=== PATIENT | female | born 1955 | race American Indian/Alaskan Native ===

== ENCOUNTER 2018-01-20 10:23 | Inpatient (IN) | payer MEDICARE, OTHER ==
--- NOTE | 2018-01-20 11:03 | ED PDOC ---
Arrival/HPI - General Chief Complaint: Altered Mental Status Time Seen by Provider: 01/20/18 10:24 Historian: Patient, Family (Daughter in law) EM Caveat: Altered Mental Status - History of Present Illness Narrative History of Present Illness (Text): 01/20/18 10:31 A 62 year old female, whose past medical history includes Altered mental status , CHF, dementia, and TIAs, presents to the emergency department with daughter in law complaining of overdose from earlier this morning. Family reports patient was in normal state of health at 5:30 am today but when [id number] came back to check on patient at 10 am, patient was found to be tired and confused. Family noticed there appeared to be missing pills form the patient's Ambien 10 mg bottle, although there was no witnessed overdose or expression of suicidal ideation. ROS is limited due to patient's condition. 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 - Anesthesia Hx Anesthesia: Yes Hx Anesthesia Reactions: No Hx Malignant Hyperthermia: No - Suicidal Assessment Feels Threatened In Home Enviroment: No Family/Social History - Physician Review Nursing Documentation Reviewed: Yes Family/Social History: Unknown Family HX Smoking Status: Former Smoker Hx Alcohol Use: No Hx Substance Use: No Hx Substance Use Treatment: No Allergies/Home Meds Allergies/Adverse Reactions: Allergies No Known Allergies Allergy (Verified 05/03/13 07:54) Home Medications: Home Meds Medication Instructions Recorded Confirmed Alprazolam [Alprazolam Xr] 0.5 mg PO 01/20/18 Lisinopril [Zestril] 10 mg PO 01/20/18 Metoprolol Succinate [Kapspargo 25 mg PO 01/20/18 Sprinkle] Pregabalin [Lyrica] 75 mg PO TID 01/20/18 01/20/18 Zolpidem [Ambien] 10 mg PO HS PRN 01/20/18 01/20/18 Review of Systems - Review of Systems Systems not reviewed;Unavailable: Altered Mental Status Constitutional: absent: Fevers Respiratory: absent: SOB Gastrointestinal: absent: Vomiting Musculoskeletal: absent: Back Pain Neurological: absent: Headache Physical Exam - Physical Exam Narrative Physical Exam (Text): 01/20/18 11:03 Head: Atraumatic. Normocephalic. Eyes: No nystagumus. She is able to focus on interviewer and track voice. Visual acuity is grossly intact. Pupils are equal. ENT: Mucous membranes are moist and intact. Oropharynx is clear and symmetric. No facial bony tenderness. Neck: Supple. Full ROM. No JVD. Trachea midline. No meningeal signs. No midline pain or deformity. Cardiovascular: Regular rate. Regular rhythm. No murmurs, rubs, or gallops. Distal pulses are 2+ and symmetric. Pulmonary/Chest: No evidence of respiratory distress. Clear to auscultation bilaterally. No wheezing, rales or rhonchi. Abdominal: Soft and non-distended. Obese. There is no tenderness. No rebound , guarding, or rigidity. No organomegaly. Good bowel sounds. No pulsatile masses. Rectal: no gross bleeding, no melena Back: No CVA tenderness. No trauma or deformity. Extremities: No edema. No cyanosis. No clubbing. History of amputation of left upper extremity. Distal extremities with no acute edema or erythema. Skin: Skin is warm and dry. No petechiae. No purpura. No lacerations. Neurological: Patient will open eyes to tactile stimuli, then to verbal stimuli. She will sit up spontaneously and speak with no slurring. No facial droop. Will move all extremities at baseline strength. Psychiatric: Poor eye contact. She does not express suicidal or homicidal ideation although family states that she has multiple stressors at this time including family illnessess that "may be causing anxiety" as per daugther in law. She "is tallking about things and not making sense" as per family. Vital Signs Reviewed: Yes Vital Signs Temp Pulse Resp BP Pulse Ox 01/20/18 14:16 97.9 F 90 19 175/79 H 97 01/20/18 13:37 100 H 181/93 H 01/20/18 12:48 84 20 181/96 H 100 01/20/18 11:50 84 22 193/93 H 98 01/20/18 10:33 96.2 F L 89 26 H 168/89 H 98 Temperature: Afebrile Blood Pressure: Hypertensive Pulse: Regular Respiratory Rate: Tachypneic Appearance: Positive for: Non-Toxic Mental Status: Positive for: Confused Finger Stick Blood Glucose: 84 Medical Decision Making ED Course and Treatment: 01/20/18 11:26 Impression: 62 year old female presenting to the emergency department for altered mental status. Plan: supplement history with family neuro checks labs monitoring cardiac monitoring ct head Prior Visits: Notes and results from previous visits were reviewed. Progress Notes: Patient was last seen well by family "daughter in law" at 530 am today when patient had food brought to her and "she was acting normal." As per daughter in law, and son who later presented, she was her typical self past few days with no noticeable new symptoms, no new medications. She was found at 1000 am by daughter in law "not acting herself" described as "talking confused". No noticeable trauma noted. Family noted that an Ambien bottle that "was just filled one week ago an had a month supply of Ambien" was empty. THERE WAS NO WITNESSED INGESTION and family does not verbally communicate that she took any pills, although she appears altered on initial exam. No signs of acute trauma noted. Family states that "the only other medication she takes now is Coumadin". There were no Coumadin pills noted to be missing. She currently "ran out of her other meds" and DOES NOT TAKE ANY OTHER MEDICATION AT THIS TIME PER FAMILY. On initial exam, she is not in respiratory distress. Lungs clear. She is intermittently sleepy but easily arousable and at times will sit up and talk and answer questions although family states "she's not herself". No focal weakness is noted. No acute facial droop noted. No fever. EKG revelas NSR rate of 92 with anteroseptal infarct, age undetermined, similar to past available EKG. Patient presented 5 hours from last time known well. She is not tpa candidate due to this reported time frame. Initial impression is possible medication overdose, monitor for tia/cva, cardiovascular disease, sepsis, medication effect. With serial exams. No hypotension, no arrhythmias. No respiratory depressions. She is AFEBRILE. Initial lactate unremarable. Abdomen soft and nontender. UA noted but no fever or hx of dysuria or abdominal pain or flank pain. Will send urine culture and follow-up with hospitalization. CT head reveals encepholmalacia but no acute interval changes as per radiology. Limitations of imaging studies and labs reviewed with patient's family. With serial exams, she will ask for something to eat. No stridor or respiratory compromise noted. Poison control was notified for possible Ambien overdose. We have reviewed case and current exam with poison control. Urine triage reviewed. Patient given clonidine for hypertension. She has reported prior hx of this. PMD reportedly Dr. Cowan. I have discussed with son, niece, daughter in law with son's permission and updated them on labs, treatment plan, initial differential diagnosis and need for serial exams, cardiac monitoring and serial neuro exams. She remains sleepy but easily arousable in ED with no focal weakness noted. INR subtherapeutic. Will turnover to hospitalist for follow-up and review of anticoagulation indications. 01/20/18 17:04 - Lab Interpretations Lab Results: 01/20/18 11:00 01/20/18 11:40 Lab Results 01/20/18 11:40: Sodium 143, Chloride 111 H, Potassium 4.2, Carbon Dioxide 23, Anion Gap 14, BUN 19, Creatinine 1.2, Est GFR ( Amer) 55, Est GFR (Non- Af Amer) 46, Random Glucose 85, Calcium 9.5, Magnesium 2.2, Total Bilirubin 0.3 , AST 22, ALT 15, Alkaline Phosphatase 106, Lactate Dehydrogenase 451, Total Creatine Kinase 148, Troponin I < 0.01 D, Total Protein 8.7 H, Albumin 4.1, Globulin 4.6, Albumin/Globulin Ratio 0.9 L, Lipase 89 01/20/18 11:00: Alcohol, Quantitative < 10 01/20/18 11:00: Salicylates < 1 L, Acetaminophen < 10.0 L 01/20/18 11:00: Urine Opiates Screen Negative, Urine Methadone Screen Negative, Ur Barbiturates Screen Negative, Ur Phencyclidine Scrn Negative, Ur Amphetamines Screen Negative, U Benzodiazepines Scrn Negative, U Oth Cocaine Metabols Negative, U Cannabinoids Screen Negative 01/20/18 11:00: pO2 72 H, VBG pH 7.38, VBG pCO2 49.0, VBG HCO3 29.0 H, VBG Total CO2 30.5 H, VBG O2 Sat (Calc) 95.8 H, VBG Base Excess 3.0 H, VBG Potassium 6.1 H, Sodium 142.0, Chloride 116.0 H, Glucose 91, Lactate 1.1, FiO2 21.0, Venous Blood Potassium 6.1 H 01/20/18 11:00: pCO2 38, pO2 90.0, HCO3 24.6, ABG pH 7.42, ABG Total CO2 25.8, ABG O2 Saturation 97.8, ABG Base Excess 0.3, ABG Potassium 3.6, Sodium 144.0, Chloride 118.0 H, Glucose 92, Lactate 0.5 L, FiO2 31.0, Arterial Blood Potassium 3.6 01/20/18 11:00: Urine Color Yellow, Urine Appearance Clear, Urine pH 6.5, Ur Specific [place] 1.020, Urine Protein Trace H, Urine Glucose (UA) Negative, Urine Ketones Negative, Urine Blood Trace-intact H, Urine Nitrate Negative, Urine Bilirubin Negative, Urine Urobilinogen 0.2, Ur Leukocyte Esterase Negative , Urine RBC 1 - 3, Urine WBC 0 - 2, Ur Epithelial Cells 4 - 5, Urine Bacteria Many 01/20/18 11:00: PT 15.5 H, INR 1.34, APTT 31.8 01/20/18 11:00: WBC 5.8 D, RBC 4.79, Hgb 11.8 L, Hct 37.2, MCV 77.7 L, MCH 24.6 L, MCHC 31.7, RDW 16.7 H, Plt Count 274, MPV 10.6, Gran % 48.2 L, Lymph % ( Auto) 38.6 H, Parmer % (Auto) 10.2 H, Eos % (Auto) 2.3, Baso % (Auto) 0.7, Gran # 2.78, Lymph # (Auto) 2.2, Parmer # (Auto) 0.6, Eos # (Auto) 0.1, Baso # (Auto) 0.04 - RAD Interpretation Narrative RAD Interpretations (Text): 01/20/18 12:11 Procedure: Chest X-ray Impression: No active disease. Dictator: Dr. Fobben. Reinier HOBBS Procedure: CT Head without contrast Impression: The study was degraded by motion artifact There is extensive encephalomalacia in the right hemisphere and portions of the left occipital lobe. The findings are unchanged. No acute findings. Dictator: Dr. Rae. Reinier HOBBS Radiology Orders: 01/20/18 10:44 HEAD W/O CONTRAST [CT] Stat CHEST ONE VIEW [RAD] Stat Division Roadmaster: Radiologist - Medication Orders Current Medication Orders: Aspirin (Ecotrin) 81 mg PO 0800 AUDIE Lisinopril (Zestril) 10 mg PO DAILY AUDIE Metoprolol Tartrate (Lopressor) 25 mg PO BID AUDIE Discontinued Medications Clonidine HCl (Catapres) 0.1 mg PO ONCE STA Stop: 01/20/18 13:28 Last Admin: 01/20/18 13:37 Dose: 0.1 mg MAR Pulse and Blood Pressure Document 01/20/18 13:37 SRE (Rec: 01/20/18 13:38 SRE [id number]) Pulse Pulse Rate (60-90 beats/min) 100 Blood Pressure Blood Pressure (100/60-150/90 mm Hg) 181/93 - Scribe Statement The provider has reviewed the documentation as recorded by the Ziggy Jimenez All medical record entries made by the Shrutiibmonroe were at my direction and personally dictated by me. I have reviewed the chart and agree that the record accurately reflects my personal performance of the history, physical exam, medical decision making, and the department course for this patient. I have also personally directed, reviewed, and agree with the discharge instructions and disposition. Disposition/Present on Arrival - Present on Arrival Any Indicators Present on Arrival: Yes History of DVT/PE: Yes History of Uncontrolled Diabetes: No Urinary Catheter: No History of Decub. Ulcer: No History Surgical Site Infection Following: None - Disposition Have Diagnosis and Disposition been Completed?: Yes Diagnosis: Altered mental status, Subtherapeutic international normalized ratio (INR) Disposition: HOSPITALIZED Disposition Time: 12:15 Patient Plan: Admission, Telemetry Patient Problems: Current Active Problems Problem Status Onset Altered mental status Acute Condition: SERIOUS
[2018-01-20 11:19] LABS: ARTERIAL BLOOD GAS HCO3 24.6 mmol/L (21-28); ARTERIAL BLOOD GAS O2 SAT 97.8 % (95-98); ARTERIAL BLOOD GAS PCO2 38 mm/Hg (35-45); ARTERIAL BLOOD GAS PH 7.42 (7.35-7.45); ARTERIAL BLOOD GAS TCO2 25.8 mmol.L (22-28)
[2018-01-20 11:26] LABS: PH,URINE 6.5 (4.7-8.0); URINE BILIRUBIN NEGATIVE (NEGATIVE); URINE BLOOD TRACE-INTACT (NEGATIVE); URINE GLUCOSE (UA) NEGATIVE (NEGATIVE); URINE LEUKOCYTE ESTERASE NEGATIVE Leu/uL (NEGATIVE); URINE PROTEIN TRACE mg/dL (<30 mg/dL); URINE UROBILINOGEN 0.2 E.U./dL (<1 E.U./dL)
[2018-01-20 11:27] LABS: BASO # 0.04 K/mm3 (0.0-2.0); BASO % 0.7 % (0.0-3.0); EOS # 0.1 (0.0-0.7); EOS % 2.3 % (1.5-5.0); GRAN # 2.78 (1.4-6.5); GRAN % 48.2 % (50.0-68.0); HEMOGLOBIN 11.8 g/dL (12.0-16.0); LYMPH # 2.2 (1.2-3.4); LYMPH % 38.6 % (22.0-35.0); MEAN CELL VOLUME 77.7 fl (80.0-105.0); MEAN CORPUSCULAR HEMOGLOBIN 24.6 pg (25.0-35.0); MEAN CORPUSCULAR HGB CONC 31.7 g/dl (31.0-37.0); MEAN PLATELET VOLUME 10.6 fl (7.0-11.0); MONO # 0.6 (0.1-0.6); MONO % 10.2 % (1.0-6.0); RBC 4.79 10^6/uL (3.5-6.1); RED CELL DISTRIBUTION WIDTH 16.7 % (11.5-14.5); URINE APPEARANCE CLEAR (CLEAR); URINE COLOR YELLOW (YELLOW); WHITE BLOOD COUNT 5.8 10^3/ul (4.5-11.0)
[2018-01-20 11:31] LABS: VENOUS BLOOD GAS PO2 72 mm/Hg (30-55); VENOUS BLOOD PH 7.38 (7.32-7.43)
[2018-01-20 11:33] LABS: INR 1.34; PARTIAL THROMBOPLASTIN TIME 31.8 Seconds (25.1-36.5); PROTHROMBIN TIME 15.5 SECONDS (9.4-12.5)
[2018-01-20 11:35] LABS: ACETAMINOPHEN < 10.0 ug/ml (10.0-20.0); SALICYLATE < 1 mg/dL (2.0-20.0)
[2018-01-20 11:44] LABS: BARBITURATES, UR NEGATIVE (NEGATIVE); BENZODIAZEPINES, UR NEGATIVE (NEGATIVE); OPIATES, UR NEGATIVE (NEGATIVE); PHENCYCLIDINE, UR NEGATIVE (NEGATIVE)
[2018-01-20 11:54] LABS: URINE BACTERIA MANY (NEG); URINE WBC 0 - 2 /hpf (0-6)
[2018-01-20 12:00] LABS: ALB/GLOB RATIO 0.9 (1.1-1.8); ALBUMIN 4.1 g/dL (3.0-4.8); ALT/SGPT 15 U/L (7-56); AST/SGOT 22 U/L (14-36); BLOOD UREA NITROGEN 19 mg/dL (7-21); CALCIUM 9.5 mg/dL (8.4-10.5); GFR NON-AFRICAN AMERICAN 46; LIPASE 89 U/L (23-300)
--- NOTE | 2018-01-20 12:01 | CT ---
Date of service: 01/20/2018 PROCEDURE: CT HEAD WITHOUT CONTRAST. HISTORY: ams COMPARISON: 06/22/2015 TECHNIQUE: Axial computed tomography images were obtained through the head/brain without intravenous contrast. Radiation dose: Total exam DLP = 2042 mGy-cm. This CT exam was performed using one or more of the following dose reduction techniques: Automated exposure control, adjustment of the mA and/or kV according to patient size, and/or use of iterative reconstruction technique. The patient was combative and was moving throughout the exam. The exam was repeated FINDINGS: HEMORRHAGE: No intracranial hemorrhage. BRAIN: The study was degraded by motion artifact There is extensive encephalomalacia in the right hemisphere and portions of the left occipital lobe. The findings are unchanged. No acute findings VENTRICLES: Unremarkable. No hydrocephalus. CALVARIUM: Unremarkable. PARANASAL SINUSES: Unremarkable as visualized. No significant inflammatory changes. MASTOID AIR CELLS: Unremarkable as visualized. No inflammatory changes. OTHER FINDINGS: None. IMPRESSION: The study was degraded by motion artifact There is extensive encephalomalacia in the right hemisphere and portions of the left occipital lobe. The findings are unchanged. No acute findings
--- NOTE | 2018-01-20 12:09 | RAD ---
Date of service: 01/20/2018 PROCEDURE: CHEST RADIOGRAPH, 1 VIEW HISTORY: sob COMPARISON: 06/20/2015 FINDINGS: LUNGS: Clear. PLEURA: No pneumothorax or pleural fluid seen. CARDIOVASCULAR: Normal. OSSEOUS STRUCTURES: No significant abnormalities. VISUALIZED UPPER ABDOMEN: Normal. OTHER FINDINGS: None. IMPRESSION: No active disease.
[2018-01-20 12:12] LABS: TROPONIN I < 0.01 ng/mL
--- NOTE | 2018-01-20 16:33 | CP.PCM.HP ---
<Rodrigo Gamez - Last Filed: 01/20/18 17:30> History of Present Illness - History of Present Illness History of Present Illness: Rodrigo Gamez, PGY1 H&P for Dr. Hughes cc: confusion/AMS Patient is a 62 y/o F with PMHx of AMS, CHF, Dementia, TIA, HTN, Prior History of DVT who presented to the ED on 01/20 for confusion and altered mental status. In the ED, daughter was present at bedside. As per daughter, patient was found at 10am to be tired and confused with missing pills found from a bottle of Ambien. Patient was not witnessed to have overdosed and she does not have any suicidal ideations. In the ED, patient's vital signs were Temp 96.2, HR 80, BP 168/89, RR 26, SaO2 98% room air. Patient had CXR which indicated no active disease. Patient's Head CT did not indicate any acute changes but it showed extensive encephalomalacia at the R-hemisphere and portions of the left occipital lobe (similar to previous scans). Initial troponin negative, urine drug screen negative, urine analysis negative. EKG showed NSR at 92 bpm. ABG was normal. Medical team was consulted for evaluation. Patient was seen in the ED. Patient was confused. She was AAOx1. Baseline mental status was unknown since patient's daughter or family member was not present at bedside. Patient said that she was experiencing dizziness x3 weeks in duration. However, she did say that she took several pills earlier in the morning but did not know which ones. At the time, she denied chest pain, shortness of breath, and abdominal pain. As from prior charting, patient was admitted before on 06/2015 for sepsis and influenza. During time of interview, a full 12 point ROS was not obtained since patient appeared to be confused (unknown baseline mental status). PMD: Dr. Cowan Reviewed from Prior charting: PMHx: AMS, CHF, Dementia, TIA, HTN, Prior History of DVT PSHx: cholecystectomy, left arm above the elbow amputation Meds: zolpidem 10 mg HS, warfarin 5 mg 1 daily, ASA 81 mg daily, Alprazolam .5 mg daily, Lyrica 75 mg TID, Metoprolol 25 mg BID, Lisinopril 10 mg daily. Allergies: NKDA FamHx: not obtained since patient is confused. SocialHx: not obtained since patient is confused. 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 - ANESTHESIA Hx Anesthesia: Yes Hx Anesthesia Reactions: No Hx Malignant Hyperthermia: No Meds Allergies/Adverse Reactions: Allergies Allergy/AdvReac Type Severity Reaction Status Date / Time No Known Allergies Allergy Verified 01/20/18 18:57 Physical Exam - Constitutional Appears: Confused - Head Exam Head Exam: ATRAUMATIC, NORMAL INSPECTION, NORMOCEPHALIC - Eye Exam Eye Exam: PERRL - ENT Exam ENT Exam: Mucous Membranes Moist, Normal Exam - Neck Exam Neck exam: Positive for: Normal Inspection - Respiratory Exam Respiratory Exam: Clear to Auscultation Bilateral, NORMAL BREATHING PATTERN. absent: Rales, Rhonchi, Wheezes - Cardiovascular Exam Cardiovascular Exam: REGULAR RHYTHM, +S1, +S2. absent: Systolic Murmur - GI/Abdominal Exam GI & Abdominal Exam: Normal Bowel Sounds, Soft. absent: Rigid, Tenderness - Extremities Exam Extremities exam: Positive for: pedal pulses present. Negative for: tenderness Additional comments: Left above the elbow amputation. Skin discoloration also noted on the lower extremities. - Neurological Exam Neurological exam: Altered (AAOx1 (person only)) - Skin Skin Exam: Dry, Intact, Normal Color, Warm Results - Vital Signs Recent Vital Signs: Last Vital Signs Temp 97.9 F 01/20/18 15:02 Pulse 90 01/20/18 15:02 Resp 19 01/20/18 15:02 BP 175/79 H 01/20/18 15:02 Pulse Ox 97 01/20/18 15:02 - Labs Result Diagrams: 01/20/18 11:00 01/20/18 11:40 Assessment & Plan - Assessment and Plan (Free Text) Assessment: Patient is a 62 y/o F with PMHx of AMS, CHF, Dementia, TIA, HTN, Prior History of DVT who presented to the ED on 01/20 for confusion and altered mental status. In the ED, history was obtained from the daughter and patient was found to be confused in the morning with missing pills found from a bottle of Ambien. Patient is being admitted for Encephalopathy 2/2 Polypharmacy. Plan: Encephalopathy 2/2 Polypharmacy and Hx of Dementia - Head CT: no acute changes. Extensive encephalomalacia at R-hemisphere and L- occipital love. - Neuro consulted, f/u recs. - Call pharmacy to confirm patient's medications - T4 - TSH - Urine drug screen negative - f/u blood cx, urine cx - UA is negative - Vital signs stable - Currently AAOx1 - Unknown baseline mental status; talk to patient's daughter - As per daughter (ED note), patient found confused at 10 am with missing pills from a bottle of Ambien - Fall precaution - CXR: no active disease HTN - BP was 168/89 - Hydralazine 10 mg q6 prn - Will hold PO BP meds for now ([id number] BID, Lisinopril 10 mg daily, ASA 81 mg daily) - please monitor BP - EKG: NSR. 92 bpm. Left [place] Deviation. - Echo (06/2015): 29% EF. Severe septal and apical hypokinesis. Lower extremity discoloration with Hx of DVT - venous doppler to r/o DVT - started on lovenox for bridge therapy (1mg/kg q12) to coumadin - f/u INR in morning Dispo: Patient will be monitored on telemetry. Case was discussed and reviewed with Attending Physician, Dr. Hughes. <Mikaela Hughes R - Last Filed: 01/22/18 07:14> Results - Vital Signs Recent Vital Signs: Last Vital Signs Temp 98.4 F 01/22/18 06:00 Pulse 73 01/22/18 06:00 Resp 20 01/22/18 06:00 BP 120/61 01/22/18 06:00 Pulse Ox 95 01/22/18 06:00 - Labs Result Diagrams: 01/21/18 06:00 01/21/18 06:00 Labs: Laboratory Results - last 24 hr 01/21/18 06:00 Sodium 143 Potassium 4.1 Chloride 109 H Carbon Dioxide 27 Anion Gap 11 BUN 14 Creatinine 1.1 Est GFR ( Amer) > 60 Est GFR (Non-Af Amer) 51 Random Glucose 82 Calcium 9.0 Phosphorus 3.5 Magnesium 2.0 Total Bilirubin 0.5 AST 22 ALT 18 Alkaline Phosphatase 94 Total Protein 7.8 Albumin 3.8 Globulin 3.9 Albumin/Globulin Ratio 1.0 L Attending/Attestation - Attestation I have personally seen and examined this patient.: Yes I have fully participated in the care of the patient.: Yes I have reviewed all pertinent clinical information: Yes Notes (Text): Patient seen and examined by me at 3:30 PM with resident 01/20/18. Case including HPI, physical exam, and assessment and plan discussed with resident. Agree with above with following additions/corrections. 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 History taken from ED notes and patient's chart as patient is altered no family at bedside. Per ED notes patient was found by daughter to be confused and tired. There were missing pills from patient's bottle of Ambien at home. It is unclear how many pills patient took. Patient admitted to dizziness earlier however when asked by me, patient denied any dizziness or lightheadedness. She states she woke up today and went to the bathroom and does not remember what happened afterwards. She does complain of some pain in her knees and states that she has arthritis in her knees. She states that she is currently in her bed at home. She is denying any pain. Unable to obtain review of systems secondary to patient being altered and confused. Physical exam: General: Awake and sleepy. HEENT: Normocephalic atraumatic. Pupils equal reactive. No scleral icterus. Oropharynx is pink and moist. Neck is supple. Hearing grossly intact. Ears and nose externally unremarkable Cardiovascular: Normal rhythm. Normal S1, S2. No murmurs, rubs, or gallops appreciated Pulmonary: Normal respiratory effort. No rhonchi, rales or wheezing appreciated. Auscultated anteriorly as patient not following commands and not sitting up or taking in deep breaths. Gastrointestinal: Soft, nondistended. Nontender. Positive bowel sounds all 4 quadrants, no guarding. Obese abdomen. Unable to examine for any organomegaly secondary to body habitus. Musculoskeletal: Moves all extremities. No calf tenderness. Trace lower extremity edema bilaterally. Central nervous system: Awake and sleepy. Patient not following commands. Confused. 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 1. Encephalopathy in a patient with history of dementia. Likely secondary to polypharmacy. Neuro consulted, follow-up recommendations. Urine drug screen negative. Poison control called by the emergency room. Possibly taken extra Ambien pills. Follow-up urine and blood culture. Follow-up thyroid panel. CT head per radiology shows study degraded by motion artifact, extensive encephalomalacia in the right hemisphere and portions of left occipital lobe, findings unchanged, no acute findings. Monitor on telemetry. Continue with Avasys. Patient made nothing by mouth. 2. Hypertension. Patient's home medications of metoprolol and lisinopril held for now as patient is nothing by mouth. Placed on hydralazine when necessary. 3. Bilateral lower extremity edema. Follow-up bilateral lower extremity venous Dopplers to rule out DVT. 4. History of DVT. INR subtherapeutic. Patient is nothing by mouth. We'll place on therapeutic Lovenox and bridge to Coumadin. 5. DVT prophylaxis. Lovenox Case was discussed in detail with the patient's nurse at bedside regarding current diagnosis and treatment plan.
--- NOTE | 2018-01-20 17:08 | CP.PCM.CON ---
<Olivia Berger - Last Filed: 01/20/18 17:29> History of Present Illness - History of Present Illness History of Present Illness: ICU consult note for Dr. Ilsa Reza for:possible Ambien overdose Mrs. Linton is a 62 yr old F who presented to [facility] via ambulance requested by family when her daughter discovered that she may have taken a large number of ambien (10-20). upon interview Mrs. linton is alert awake and oriented to person and time she is able to give her birthdate and name her daughters. She believes she is in in [place] but has encephalomalacia and associated dementia therefore this may be her baseline. She states that she has not taken Ambien since last night before going to sleep and has not taken any today. She attributes her mild sleepiness to poor sleep quality last night. She otherwise denies difficulty breathing, abdominal pain, chest pain, or headache. PMH: encephalomalacia and associated dementia at baseline, CHF, HTN, R CVA 2010 PSH: Cholecystectomy Social: former smoker Review of Systems - EENT Eyes: absent: Change in Vision - Cardiovascular Cardiovascular: absent: Chest Pain - Respiratory Respiratory: absent: Dyspnea - Gastrointestinal Gastrointestinal: absent: Abdominal Pain Past Patient History - Infectious Disease Hx of Infectious Diseases: None - Past Social History Smoking Status: Former Smoker - CARDIAC Hx Congestive Heart Failure: Yes Hx Hypertension: Yes - PULMONARY Hx Respiratory Disorders: No - NEUROLOGICAL HX Cerebrovascular Accident: Yes (R CVA 2010) - HEENT Hx HEENT Problems: No Other/Comment: 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 - ANESTHESIA Hx Anesthesia: Yes Hx Anesthesia Reactions: No Hx Malignant Hyperthermia: No Meds Allergies/Adverse Reactions: Allergies Allergy/AdvReac Type Severity Reaction Status Date / Time No Known Allergies Allergy Verified 05/03/13 07:54 - Medications Medications: Current Medications Aspirin (Ecotrin) 81 mg PO 0800 [facility] Lisinopril (Zestril) 10 mg PO DAILY [facility] Metoprolol Tartrate (Lopressor) 25 mg PO BID [facility] Physical Exam - Constitutional Appears: Well, Non-toxic, No Acute Distress - Head Exam Head Exam: ATRAUMATIC, NORMOCEPHALIC - Eye Exam Eye Exam: EOMI, Normal appearance - ENT Exam ENT Exam: Mucous Membranes Moist - Respiratory Exam Respiratory Exam: Clear to Auscultation Bilateral, NORMAL BREATHING PATTERN. absent: Rales, Rhonchi, Wheezes - Cardiovascular Exam Cardiovascular Exam: REGULAR RHYTHM, +S1, +S2 - GI/Abdominal Exam GI & Abdominal Exam: Normal Bowel Sounds, Soft. absent: Distended, Firm, Guarding, Rigid, Tenderness - Extremities Exam Extremities exam: Positive for: normal inspection - Neurological Exam Neurological exam: Alert Additional comments: oriented x2 knows person and date but believes she is in [place] - Psychiatric Exam Psychiatric exam: Normal Affect, Normal Mood - Skin Skin Exam: Dry, Intact, Normal Color, Warm Results - Vital Signs Recent Vital Signs: Last Vital Signs Temp 97.9 F 01/20/18 15:02 Pulse 90 01/20/18 15:02 Resp 19 01/20/18 15:02 BP 175/79 H 01/20/18 15:02 Pulse Ox 97 01/20/18 15:02 - Labs Result Diagrams: 01/20/18 11:00 01/20/18 11:40 Assessment & Plan - Assessment and Plan (Free Text) Assessment: 62 yr old female with PMH baseline dementia, CHF, HTN with possible unknown quantity of Ambien ingested. Patient is awake alert oriented to person and date , resting comfortably in bed with no tachypnea, hypotension or respiratory distress ABG, LFT, BUN/CR, CMP and Toxin screen normal. Head Ct reveals stable encephalomalacia consistent with her baseline dementia. CXR shows no active disease. EKG is unremarkable. Recommend patient be monitored for signs of excessive Ambien ingestion such as EKG changes LFTs and MATT on a telemetry floor. Plan: Neuro: - Alert Oriented x2 following commands - reponds to simpla and complex questions approriately - believes she is in [place], this may be consistent with her baseline dementia diagnosis - CT; Stable encephalomalacia present - monitor for mental status changes Cardio: - Normotensive, nontacycardic - normal EKG - monitor for EKG changes on tele Pulm: - breathing comfortably no respiratory distress - saturating well on O2 NC - CXR negative - monitor for respiratory changes GI: - denies abdominal pain, no tenderness on EXAM - LFTs normal, no signs of liver injury - no jaundice on exam - monitor for LFT changes - recommend GI prophylaxis Renal: - appropriate UOP - BUN/Cr 19/1.2, this is her baseline - monitor for signs of MATT Heme: - no signs of hemorrhage or volume depletion - hgb/hct 11.8/37 - PLT 274 - Monitor for changes DVT: LVX/ASA - Date & Time Date: 01/20/18 Time: 17:28 <Justin Rosenbaum - Last Filed: 01/20/18 18:07> Meds - Medications Medications: Current Medications Aspirin (Ecotrin) 81 mg PO 0800 [facility] Enoxaparin Sodium (Lovenox) 150 mg SC Q12H [facility] PRN Reason: Protocol Hydralazine HCl (Apresoline) 10 mg IVP Q6 PRN PRN Reason: Anxiety Lisinopril (Zestril) 10 mg PO DAILY [facility] Metoprolol Tartrate (Lopressor) 25 mg PO BID [facility] Warfarin Sodium (Coumadin) 5 mg PO 1800 [facility] PRN Reason: Protocol Results - Vital Signs Recent Vital Signs: Last Vital Signs Temp 97.9 F 01/20/18 15:02 Pulse 90 01/20/18 15:02 Resp 19 01/20/18 15:02 BP 175/79 H 01/20/18 15:02 Pulse Ox 97 01/20/18 15:02 - Labs Result Diagrams: 01/20/18 11:00 01/20/18 11:40 Assessment & Plan - Assessment and Plan (Free Text) Plan: Patient seen and examined with resident, agree with note with following additions/exceptions: Patient is 62y female with PMHx of dementia, CHF, HTN, encephalomalecia, presented today with AMS as reported by the family, after possibly ingesting unknown amount of ambien. On my evaluation, patient is awake, alert, in NAD, providing full history, reports taking "3 pills of Ambien". Denies fever, chills , cough, chest pain, sob, palpitations, RAMIREZ, dizziness. Labs, imaging, chart reviewed. ABG with no evidence of CO2 narcosis/resp acidosis. Patient afebrile, HD stable, comfortable in NAD, on 2LNC, sat 94% LFTs, Cr wnl. EKG noted. Recommend: monitor resp status, currently stable, monitor LFTs, Cr, avoid sedatives. IVF hydration, GI ppx, DVT ppx, monitor on tele, stable.
[2018-01-20 17:25] LABS: FREE T4 1.14 ng/dL (0.78-2.19)
--- NOTE | 2018-01-20 17:33 | CARD ---
APPROVED REPORT Date of service: 01/20/2018 EKG Measurement Heart [id number] <Conclusion> Normal sinus rhythm Left axis deviation Voltage criteria for left ventricular hypertrophy Anteroseptal infarct, age undetermined Abnormal ECG
[2018-01-20] MEDS: Enoxaparin 150 mg Syringe SC SCH (19:00)
[2018-01-20 23:02] VITALS: BMI 52.0
[2018-01-20] MEDS ORDERED: Pneumococcal 23-Valent Vaccine IM ONE (23:02)
[2018-01-21 06:45] LABS: HEMOGLOBIN 11.5 g/dL (12.0-16.0); MEAN CELL VOLUME 77.9 fl (80.0-105.0); MEAN CORPUSCULAR HEMOGLOBIN 24.2 pg (25.0-35.0); MEAN PLATELET VOLUME 10.5 fl (7.0-11.0); RBC 4.76 10^6/uL (3.5-6.1); RED CELL DISTRIBUTION WIDTH 16.8 % (11.5-14.5); WHITE BLOOD COUNT 5.5 10^3/ul (4.5-11.0)
[2018-01-21 06:49] LABS: INR 1.35; PROTHROMBIN TIME 15.6 SECONDS (9.4-12.5)
[2018-01-21] MEDS: Enoxaparin 150 mg Syringe SC SCH ×2 (06:54→18:13)
[2018-01-21 07:51] LABS: ALBUMIN 3.8 g/dL (3.0-4.8); ALT/SGPT 18 U/L (7-56); AST/SGOT 22 U/L (14-36); BLOOD UREA NITROGEN 14 mg/dL (7-21); GFR NON-AFRICAN AMERICAN 51
[2018-01-21] MEDS ORDERED: Metoprolol Succinate 25 mg XL Tab PO SCH (08:00)
--- NOTE | 2018-01-21 13:49 | CP.PCM.PN ---
<Dain Law - Last Filed: 01/21/18 13:57> Subjective - Date & Time of Evaluation Date of Evaluation: 01/21/18 Time of Evaluation: 10:25 - Subjective Subjective: Dain Law DO, PGY-2: Progress Note for Dr. Mikaela Hughes Patient seen and examined at bedside. She is mentally lucid, oriented to person place or time, answering all questions appropriately. She is pending evaluation from neurology. Poison control stated Ambien Overdose is not a condition of lethality. Patient is doing well and only request for Cyclobenzaprine for muscle spasms. Objective - Vital Signs/Intake and Output Vital Signs (last 24 hours): Temp Pulse Resp BP Pulse Ox 99.1 F 61 19 200/100 H 97 01/21/18 12:00 01/21/18 12:00 01/21/18 12:00 01/21/18 10:56 01/20/18 15:02 Intake and Output: 01/21/18 01/21/18 06:59 18:59 Output Total 600 Balance -600 - Medications Medications: Current Medications Acetaminophen (Tylenol 325mg Tab) 650 mg PO Q6H PRN PRN Reason: Pain, moderate (4-7) Last Admin: 01/21/18 11:00 Dose: 650 mg Aspirin (Ecotrin) 81 mg PO 0800 [facility] Last Admin: 01/21/18 10:55 Dose: 81 mg Enoxaparin Sodium (Lovenox) 150 mg SC Q12H [facility] PRN Reason: Protocol Last Admin: 01/21/18 06:54 Dose: 150 mg Lisinopril (Zestril) 10 mg PO DAILY [facility] Last Admin: 01/21/18 11:00 Dose: 10 mg Metoprolol Tartrate (Lopressor) 25 mg PO BID [facility] Last Admin: 01/21/18 10:56 Dose: 25 mg Warfarin Sodium (Coumadin) 5 mg PO 1800 [facility] PRN Reason: Protocol - Labs Labs: 01/21/18 06:00 01/21/18 06:00 PT 15.6 SECONDS (9.4-12.5) H 01/21/18 06:00 INR 1.35 01/21/18 06:00 APTT 31.8 Seconds (25.1-36.5) 01/20/18 11:00 - Constitutional Appears: Well, Non-toxic - Head Exam Head Exam: ATRAUMATIC, NORMOCEPHALIC - Eye Exam Eye Exam: EOMI, Normal appearance - ENT Exam ENT Exam: Mucous Membranes Moist, Normal Oropharynx - Neck Exam Neck Exam: Normal Inspection - Respiratory Exam Respiratory Exam: Clear to Ausculation Bilateral, NORMAL BREATHING PATTERN. absent: Accessory Muscle Use - Cardiovascular Exam Cardiovascular Exam: RRR, +S1, +S2 - GI/Abdominal Exam GI & Abdominal Exam: Soft, Normal Bowel Sounds - Extremities Exam Extremities Exam: Normal Inspection Additional comments: left arm is amputated - Neurological Exam Neurological Exam: Alert, Awake, CN II-XII Intact, Oriented x3 Neuro motor strength exam: Left Upper Extremity: 5, Right Upper Extremity: 5, Left Lower Extremity: 5, Right Lower Extremity: 5 - Psychiatric Exam Psychiatric exam: Normal Affect, Normal Mood - Skin Skin Exam: Dry, Intact, Normal Color, Warm Assessment and Plan - Assessment and Plan (Free Text) Assessment: Patient is a 62 y/o F with PMHx of AMS, CHF, Dementia, TIA, HTN, Prior History of DVT who presented to the ED on 01/20 for confusion and altered mental status. In the ED, history was obtained from the daughter and patient was found to be confused in the morning with missing pills found from a bottle of Ambien. Patient is being admitted lethargy and is pending PT and neurology evaluation. Plan: Ambien lethargy has completely resolved - Head CT: no acute changes. Extensive encephalomalacia at R-hemisphere and L- occipital love. - Neuro consulted, f/u recs. - Call pharmacy to confirm patient's medications - T4 normal - TSH normal - Urine drug screen negative - f/u blood cx, urine cx negative - UA is negative - Vital signs stable - Currently AAOx 3 - Unknown baseline mental status; talk to patient's daughter - As per daughter (ED note), patient found confused at 10 am with missing pills from a bottle of Ambien - Fall precaution - CXR: no active disease HTN - BP was 168/89 - Hydralazine 10 mg q6 prn - Will continue PO BP meds ([id number] BID, Lisinopril 10 mg daily, ASA 81 mg daily) - EKG: NSR. 92 bpm. Left [place] Deviation. - Echo (06/2015): 29% EF. Severe septal and apical hypokinesis. Lower extremity discoloration with Hx of DVT - venous doppler negative - started on lovenox for bridge therapy (1mg/kg q12) to coumadin - will bridge to coumadin Dispo: Patient will be monitored on telemetry. Case was discussed and reviewed with Attending Physician, Dr. Mikaela Hughes. <Mikaela Hughes R - Last Filed: 01/22/18 07:33> Objective - Vital Signs/Intake and Output Vital Signs (last 24 hours): Temp Pulse Resp BP Pulse Ox 98.4 F 73 20 120/61 95 01/22/18 06:00 01/22/18 06:00 01/22/18 06:00 01/22/18 06:00 01/22/18 06:00 Intake and Output: 01/22/18 01/22/18 06:59 18:59 Intake Total 840 Output Total 1400 Balance -560 - Medications Medications: Current Medications Acetaminophen (Tylenol 325mg Tab) 650 mg PO Q6H PRN PRN Reason: Pain, moderate (4-7) Last Admin: 01/22/18 00:34 Dose: 650 mg Aspirin (Ecotrin) 81 mg PO 0800 [facility] Last Admin: 01/21/18 10:55 Dose: 81 mg Cyclobenzaprine HCl (Flexeril) 5 mg PO TID PRN PRN Reason: Muscle spasm Last Admin: 01/22/18 02:58 Dose: 5 mg Enoxaparin Sodium (Lovenox) 150 mg SC Q12H [facility] PRN Reason: Protocol Last Admin: 01/22/18 05:47 Dose: 150 mg Lisinopril (Zestril) 10 mg PO DAILY [facility] Last Admin: 01/21/18 11:00 Dose: 10 mg Metoprolol Tartrate (Lopressor) 25 mg PO BID [facility] Last Admin: 01/21/18 18:12 Dose: 25 mg Warfarin Sodium (Coumadin) 5 mg PO 1800 [facility] PRN Reason: Protocol Last Admin: 01/21/18 18:12 Dose: 5 mg - Labs Labs: 01/21/18 06:00 01/21/18 06:00 PT 15.6 SECONDS (9.4-12.5) H 01/21/18 06:00 INR 1.35 01/21/18 06:00 APTT 31.8 Seconds (25.1-36.5) 01/20/18 11:00 Attending/Attestation - Attestation I have personally seen and examined this patient.: Yes I have fully participated in the care of the patient.: Yes I have reviewed all pertinent clinical information, including history, physical exam and plan: Yes Notes (Text): ]Patient seen and examined by me at 8:55AM with resident 01/21/18. Case including HPI, physical exam, and assessment and plan discussed with resident. Agree with above with following additions/corrections. 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 Patient states that she is feeling much better today. Patient is oriented today. Patient resolved. Patient states that he has a pill bottle from which she takes all her medications daily. States that someone puts all her medications in the pill bottle daily. She did not realize that the pill bottle she took medications from was just Ambien. She is not feeling lethargic today. She complains of pain in her knee from arthritis. She states that her left upper extremity was amputated secondary to a DVT. She denies any headaches or dizziness. No fevers or chills. No chest pain or shortness of breath. No dysuria. No nausea, vomiting, or abdominal pain. Physical exam: General: Awake and alert. No acute distress. HEENT: Normocephalic atraumatic. Pupils equal reactive. No scleral icterus. Oropharynx is pink and moist. Neck is supple. Cardiovascular: Normal rhythm. Normal S1, S2. No murmurs, rubs, or gallops appreciated Pulmonary: Normal respiratory effort. No rhonchi, rales or wheezing appreciated. Gastrointestinal: Soft, nondistended. Nontender. Positive bowel sounds all 4 quadrants, no guarding. Obese abdomen. Unable to examine for any organomegaly secondary to body habitus. Musculoskeletal: Moves all extremities. No calf tenderness. Trace lower extremity edema bilaterally. Central nervous system: AAO 3. CN2-12 grossly intact. 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 1. Encephalopathy in a patient with history of dementia. Likely secondary to polypharmacy. Encephalopathy resolved. Neuro following, recommendations appreciated. Urine drug screen negative. Poison control called by the emergency room. Possibly taken extra Ambien pills. Urine and blood cultures with no growth. TSH within normal limits. CT head per radiology shows study degraded by motion artifact, extensive encephalomalacia in the right hemisphere and portions of left occipital lobe, findings unchanged, no acute findings Continue with Avasys. 2. Hypertension. Restarted on home lisinopril and metoprolol. 3. Bilateral lower extremity edema. Lower extremity venous Dopplers negative for DVT. 4. History of DVT. INR subtherapeutic. Continue therapeutic Lovenox. Patient to get Coumadin tonight. Follow up repeat INR in the morning. 5. DVT prophylaxis. Lovenox Case was discussed in detail with the patient regarding current diagnosis and treatment plan.
--- NOTE | 2018-01-21 16:33 | CP.PCM.CON ---
History of Present Illness - History of Present Illness History of Present Illness: Neurology Consultation Note: Mrs. Basurto is a 62-year-old woman who was brought in to the ED for concern of taking extra doses of ambien. She was initially slightly somnolent and confused , but is not back to her baseline. Neurology was consulted to assist with the management and care. 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, deaf in right ear - RENAL Hx Chronic Kidney Disease: No - ENDOCRINE/METABOLIC Hx Endocrine Disorders: No - HEMATOLOGICAL/ONCOLOGICAL Hx Blood Disorders: No - INTEGUMENTARY Hx Dermatological Problems: Yes Other/Comment: LEFT ABOVE ELBOW AMPUTION - MUSCULOSKELETAL/RHEUMATOLOGICAL Hx Musculoskeletal Disorders: Yes (ABOVE LEFT ELBOW AMPUTATION) Hx Falls: Yes Hx Unsteady Gait: Yes - GASTROINTESTINAL Hx Gastrointestinal Disorders: Yes Hx Gall Bladder Disease: Yes (CHOLEYCTECTOMY) - GENITOURINARY/GYNECOLOGICAL Hx Genitourinary Disorders: No - PSYCHIATRIC Hx Psychophysiologic Disorder: No Hx Depression: No Hx Emotional Abuse: No Hx Physical Abuse: No Hx Substance Use: No - SURGICAL HISTORY Hx Surgeries: Yes Hx Cholecystectomy: Yes Other/Comment: Left arm above elbow ampute. - ANESTHESIA Hx Anesthesia: Yes Hx Anesthesia Reactions: No Hx Malignant Hyperthermia: No Meds Allergies/Adverse Reactions: Allergies Allergy/AdvReac Type Severity Reaction Status Date / Time No Known Allergies Allergy Verified 01/20/18 18:57 - Medications Medications: Current Medications Acetaminophen (Tylenol 325mg Tab) 650 mg PO Q6H PRN PRN Reason: Pain, moderate (4-7) Last Admin: 01/21/18 11:00 Dose: 650 mg Aspirin (Ecotrin) 81 mg PO 0800 [facility] Last Admin: 01/21/18 10:55 Dose: 81 mg Cyclobenzaprine HCl (Flexeril) 5 mg PO TID PRN PRN Reason: Muscle spasm Enoxaparin Sodium (Lovenox) 150 mg SC Q12H [facility] PRN Reason: Protocol Last Admin: 01/21/18 06:54 Dose: 150 mg Lisinopril (Zestril) 10 mg PO DAILY [facility] Last Admin: 01/21/18 11:00 Dose: 10 mg Metoprolol Tartrate (Lopressor) 25 mg PO BID [facility] Last Admin: 01/21/18 10:56 Dose: 25 mg Warfarin Sodium (Coumadin) 5 mg PO 1800 [facility] PRN Reason: Protocol Physical Exam - Neurological Exam Neurological exam: Alert, CN II-XII Intact, Normal Gait, Oriented x3, Reflexes Normal Results - Vital Signs Recent Vital Signs: Last Vital Signs Temp 99.1 F 01/21/18 12:00 Pulse 61 01/21/18 12:00 Resp 19 01/21/18 12:00 BP 200/100 H 01/21/18 10:56 Pulse Ox 97 01/20/18 15:02 - Labs Result Diagrams: 01/21/18 06:00 01/21/18 06:00 Labs: Laboratory Results - last 24 hr 01/21/18 01/21/18 01/21/18 06:00 06:00 06:00 WBC 5.5 RBC 4.76 Hgb 11.5 L Hct 37.1 MCV 77.9 L MCH 24.2 L MCHC 31.0 RDW 16.8 H Plt Count 278 MPV 10.5 PT 15.6 H INR 1.35 Sodium 143 Potassium 4.1 Chloride 109 H Carbon Dioxide 27 Anion Gap 11 BUN 14 Creatinine 1.1 Est GFR ( Amer) > 60 Est GFR (Non-Af Amer) 51 Random Glucose 82 Calcium 9.0 Phosphorus 3.5 Magnesium 2.0 Total Bilirubin 0.5 AST 22 ALT 18 Alkaline Phosphatase 94 Total Protein 7.8 Albumin 3.8 Globulin 3.9 Albumin/Globulin Ratio 1.0 L Assessment & Plan (1) Altered mental status Assessment and Plan: Likely due to medication effect. No other recommendations at this time. Thank you. Status: Resolved
[2018-01-22] MEDS: Enoxaparin 150 mg Syringe SC SCH ×2 (05:47→17:46)
[2018-01-22 07:33] LABS: HEMOGLOBIN 11.4 g/dL (12.0-16.0); MEAN CORPUSCULAR HEMOGLOBIN 24.2 pg (25.0-35.0); MEAN PLATELET VOLUME 10.9 fl (7.0-11.0); RBC 4.72 10^6/uL (3.5-6.1); WHITE BLOOD COUNT 5.8 10^3/ul (4.5-11.0)
[2018-01-22 07:50] LABS: ALB/GLOB RATIO 0.9 (1.1-1.8); ALBUMIN 3.6 g/dL (3.0-4.8); CALCIUM 8.9 mg/dL (8.4-10.5)
[2018-01-22 08:12] LABS: INR 1.36; PROTHROMBIN TIME 15.7 SECONDS (9.4-12.5)
--- NOTE | 2018-01-22 09:15 | CP.PCM.PN ---
<Dain Law - Last Filed: 01/22/18 13:36> Subjective - Date & Time of Evaluation Date of Evaluation: 01/22/18 Time of Evaluation: 09:15 - Subjective Subjective: Dain Law DO, PGY-2: Progress Note for Dr. Mikaela Hughes Patient seen and examined at bedside. She is mentally lucid, oriented to person place or time, answering all questions appropriately. She is cleared by neurology. Poison control stated Ambien Overdose is not a condition of lethality. Patient is doing well and only request for Cyclobenzaprine for muscle spasms. She denies any complaint. Nurse reports no adverse events overnight. Objective - Vital Signs/Intake and Output Vital Signs (last 24 hours): Temp Pulse Resp BP Pulse Ox 98.4 F 73 20 120/61 95 01/22/18 06:00 01/22/18 06:00 01/22/18 06:00 01/22/18 06:00 01/22/18 06:00 Intake and Output: 01/22/18 01/22/18 06:59 18:59 Intake Total 840 Output Total 1400 Balance -560 - Medications Medications: Current Medications Acetaminophen (Tylenol 325mg Tab) 650 mg PO Q6H PRN PRN Reason: Pain, moderate (4-7) Last Admin: 01/22/18 00:34 Dose: 650 mg Aspirin (Ecotrin) 81 mg PO 0800 [facility] Last Admin: 01/21/18 10:55 Dose: 81 mg Cyclobenzaprine HCl (Flexeril) 5 mg PO TID PRN PRN Reason: Muscle spasm Last Admin: 01/22/18 02:58 Dose: 5 mg Enoxaparin Sodium (Lovenox) 150 mg SC Q12H [facility] PRN Reason: Protocol Last Admin: 01/22/18 05:47 Dose: 150 mg Lisinopril (Zestril) 10 mg PO DAILY [facility] Last Admin: 01/21/18 11:00 Dose: 10 mg Metoprolol Tartrate (Lopressor) 25 mg PO BID [facility] Last Admin: 01/21/18 18:12 Dose: 25 mg Warfarin Sodium (Coumadin) 10 mg PO 1800 [facility] PRN Reason: Protocol Stop: 01/22/18 18:01 - Labs Labs: 01/22/18 06:30 01/22/18 06:30 PT 15.7 SECONDS (9.4-12.5) H 01/22/18 07:53 INR 1.36 01/22/18 07:53 APTT 31.8 Seconds (25.1-36.5) 01/20/18 11:00 - Constitutional Appears: Well, Non-toxic - Head Exam Head Exam: ATRAUMATIC, NORMOCEPHALIC - Eye Exam Eye Exam: EOMI, Normal appearance - ENT Exam ENT Exam: Mucous Membranes Moist - Neck Exam Neck Exam: Normal Inspection - Respiratory Exam Respiratory Exam: Clear to Ausculation Bilateral, NORMAL BREATHING PATTERN. absent: Accessory Muscle Use - Cardiovascular Exam Cardiovascular Exam: RRR, +S1, +S2 - GI/Abdominal Exam GI & Abdominal Exam: Soft, Normal Bowel Sounds - Extremities Exam Extremities Exam: Normal Inspection. absent: Calf Tenderness Additional comments: patients left arm is amputated - Neurological Exam Neurological Exam: Alert, Awake, CN II-XII Intact, Oriented x3 - Psychiatric Exam Psychiatric exam: Normal Affect, Normal Mood - Skin Skin Exam: Dry, Intact, Normal Color, Warm Assessment and Plan - Assessment and Plan (Free Text) Assessment: Patient is a 62 y/o F with PMHx of AMS, CHF, Dementia, TIA, HTN, Prior History of DVT who presented to the ED on 01/20 for confusion and altered mental status. In the ED, history was obtained from the daughter and patient was found to be confused in the morning with missing pills found from a bottle of Ambien. Patient is being admitted lethargy and is pending PT and neurology evaluation. Plan: Ambien lethargy has completely resolved - Head CT: no acute changes. Extensive encephalomalacia at R-hemisphere and L- occipital love. - Neuro consulted, f/u recs. - Call pharmacy to confirm patient's medications - T4 normal - TSH normal - Urine drug screen negative - f/u blood cx, urine cx negative - UA is negative - Vital signs stable - Currently AAOx 3r - Fall precaution - CXR: no active disease HTN - BP was 168/89 - Hydralazine 10 mg q6 prn - Will continue PO BP meds ([id number] BID, Lisinopril 10 mg daily, ASA 81 mg daily) - EKG: NSR. 92 bpm. Left [place] Deviation. - Echo (06/2015): 29% EF. Severe septal and apical hypokinesis. Lower extremity discoloration with Hx of DVT - venous doppler negative - started on lovenox for bridge therapy (1mg/kg q12) to coumadin - will bridge to coumadin - INR is subtherapeutic, will give 10 mg today and follow INR Dispo: PT evaluation Case was discussed and reviewed with Attending Physician, Dr. Mikaela Hughes. <Mikaela Hughes R - Last Filed: 01/22/18 17:02> Objective - Vital Signs/Intake and Output Vital Signs (last 24 hours): Temp Pulse Resp BP Pulse Ox 99.1 F 81 18 104/47 L 95 01/22/18 12:00 01/22/18 12:00 01/22/18 12:00 01/22/18 12:00 01/22/18 06:00 Intake and Output: 01/22/18 01/22/18 06:59 18:59 Intake Total 840 Output Total 1400 Balance -560 - Medications Medications: Current Medications Acetaminophen (Tylenol 325mg Tab) 650 mg PO Q6H PRN PRN Reason: Pain, moderate (4-7) Last Admin: 01/22/18 15:53 Dose: 650 mg Aspirin (Ecotrin) 81 mg PO 0800 [facility] Last Admin: 01/22/18 10:46 Dose: 81 mg Cyclobenzaprine HCl (Flexeril) 5 mg PO TID PRN PRN Reason: Muscle spasm Last Admin: 01/22/18 10:46 Dose: 5 mg Enoxaparin Sodium (Lovenox) 150 mg SC Q12H [facility] PRN Reason: Protocol Last Admin: 01/22/18 05:47 Dose: 150 mg Lisinopril (Zestril) 10 mg PO DAILY [facility] Last Admin: 01/22/18 10:45 Dose: 10 mg Metoprolol Tartrate (Lopressor) 25 mg PO BID [facility] Last Admin: 01/22/18 10:46 Dose: 25 mg Warfarin Sodium (Coumadin) 10 mg PO 1800 [facility] PRN Reason: Protocol Stop: 01/22/18 18:01 - Labs Labs: 01/22/18 06:30 01/22/18 06:30 PT 15.7 SECONDS (9.4-12.5) H 01/22/18 07:53 INR 1.36 01/22/18 07:53 APTT 31.8 Seconds (25.1-36.5) 01/20/18 11:00 Attending/Attestation - Attestation I have personally seen and examined this patient.: Yes I have fully participated in the care of the patient.: Yes I have reviewed all pertinent clinical information, including history, physical exam and plan: Yes Notes (Text): Patient seen and examined by me at 9:10AM with resident. Case including HPI, physical exam, and assessment and plan discussed with resident. Agree with above with following additions/corrections. 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 Patient states that she is feels fine. She is denying any pain today. Patient is asking if she will be seen by physical therapy. She denies chest pain or shortness of breath. No headaches or dizziness. No fevers or chills. No dysuria. No nausea, vomiting, or abdominal pain. Physical exam: General: Awake and alert. No acute distress. HEENT: Normocephalic atraumatic. Pupils equal reactive. No scleral icterus. Oropharynx is pink and moist. Neck is supple. Cardiovascular: Normal rhythm. Normal S1, S2. No murmurs, rubs, or gallops appreciated Pulmonary: Normal respiratory effort. No rhonchi, rales or wheezing appreciated. Gastrointestinal: Soft, nondistended. Nontender. Positive bowel sounds all 4 quadrants, no guarding. Obese abdomen. Unable to examine for any organomegaly secondary to body habitus. Musculoskeletal: Moves all extremities. S/P above elbow left arm amputation. No calf tenderness. Trace lower extremity edema bilaterally. Central nervous system: AAO 3. CN2-12 grossly intact. 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 1. Encephalopathy in a patient with history of dementia. Likely secondary to polypharmacy. Encephalopathy resolved. Neuro following, recommendations appreciated. Urine drug screen negative. Urine and blood cultures with no growth. TSH within normal limits. CT head per radiology shows study degraded by motion artifact, extensive encephalomalacia in the right hemisphere and portions of left occipital lobe, findings unchanged, no acute findings Continue with Avasys. 2. Hypertension. Continue lisinopril and metoprolol. 3. Bilateral lower extremity edema. Lower extremity venous Dopplers negative for DVT. 4. History of DVT. INR subtherapeutic. Continue therapeutic Lovenox. Patient given Coumadin 10 mg 1 dose tonight. Follow up repeat INR in the morning and adjust Coumadin dosing. 5. Arthritis and pain. Continue Tylenol as needed. Continue Flexeril as needed 6. DVT prophylaxis. Lovenox Case was discussed in detail with the patient regarding current diagnosis and treatment plan.
[2018-01-22 20:54] VITALS: RESP 20
[2018-01-23] MEDS: Enoxaparin 150 mg Syringe SC SCH ×2 (06:24→18:18)
[2018-01-23 07:27] LABS: BASO # 0.02 K/mm3 (0.0-2.0); BASO % 0.4 % (0.0-3.0); EOS # 0.2 (0.0-0.7); EOS % 3.1 % (1.5-5.0); GRAN # 2.27 (1.4-6.5); GRAN % 44.5 % (50.0-68.0); HEMOGLOBIN 11.8 g/dL (12.0-16.0); MEAN CELL VOLUME 77.7 fl (80.0-105.0); MEAN CORPUSCULAR HEMOGLOBIN 24.3 pg (25.0-35.0); MEAN CORPUSCULAR HGB CONC 31.3 g/dl (31.0-37.0); MONO # 0.6 (0.1-0.6); RBC 4.85 10^6/uL (3.5-6.1); RED CELL DISTRIBUTION WIDTH 16.8 % (11.5-14.5); WHITE BLOOD COUNT 5.1 10^3/ul (4.5-11.0)
[2018-01-23 07:32] LABS: INR 1.36; PROTHROMBIN TIME 15.7 SECONDS (9.4-12.5)
[2018-01-23 08:08] LABS: ALB/GLOB RATIO 0.9 (1.1-1.8); ALBUMIN 3.6 g/dL (3.0-4.8); CALCIUM 8.9 mg/dL (8.4-10.5)
--- NOTE | 2018-01-23 12:29 | US ---
HISTORY: Leg pain and swelling. Evaluate for DVT PHYSICIAN(S): Jose Gee MD. TECHNIQUE: Duplex sonography and color-flow Doppler with graded compression were used to evaluate the deep venous systems of both lower extremities. The exam is very limited by body habitus and edema. The lower femoral veins and tibial veins are not well seen FINDINGS: The visualized deep venous systems of both lower extremities are sonographically normal and compressible. Normal wave forms and augmentation are seen. There is no sonographic evidence for deep venous thrombosis in the visualized segments of both lower extremities. IMPRESSION: No sonographic evidence for deep venous thrombosis in the visualized segments of both lower extremities. Very limited study
[2018-01-23 16:29] VITALS: TEMP 100.1; O2SAT 97
[2018-01-23 18:23] VITALS: BP 138/82; PULSE 109
--- NOTE | 2018-01-23 18:37 | CP.PCM.DIS ---
<Pal,Rodrigo - Last Filed: 01/23/18 18:30> Provider - Provider Date of Admission: 01/20/18 13:31 Attending physician: Alaina Alonzo MD Primary care physician: Memo Cowan MD Consults: Neuro: [place] Time Spent in preparation of Discharge (in minutes): 40 Diagnosis - Discharge Diagnosis (1) Altered mental status Status: Resolved Hospital Course - Lab Results Lab Results: Micro Results 01/22/18 13:15 Stool C. difficile Antigen & Toxin A,B (M - Final Most Recent Lab Values WBC 5.1 10^3/ul (4.5-11.0) 01/23/18 07:00 RBC 4.85 10^6/uL (3.5-6.1) 01/23/18 07:00 Hgb 11.8 g/dL (12.0-16.0) L 01/23/18 07:00 Hct 37.7 % (36.0-48.0) 01/23/18 07:00 MCV 77.7 fl (80.0-105.0) L 01/23/18 07:00 MCH 24.3 pg (25.0-35.0) L 01/23/18 07:00 MCHC 31.3 g/dl (31.0-37.0) 01/23/18 07:00 RDW 16.8 % (11.5-14.5) H 01/23/18 07:00 Plt Count 265 10^3/uL (120.0-450.0) 01/23/18 07:00 MPV 10.0 fl (7.0-11.0) 01/23/18 07:00 Gran % 44.5 % (50.0-68.0) L 01/23/18 07:00 Lymph % (Auto) 40.0 % (22.0-35.0) H 01/23/18 07:00 [place] % (Auto) 12.0 % (1.0-6.0) H 01/23/18 07:00 Eos % (Auto) 3.1 % (1.5-5.0) 01/23/18 07:00 Baso % (Auto) 0.4 % (0.0-3.0) 01/23/18 07:00 Gran # 2.27 (1.4-6.5) 01/23/18 07:00 Lymph # (Auto) 2.0 (1.2-3.4) 01/23/18 07:00 [place] # (Auto) 0.6 (0.1-0.6) 01/23/18 07:00 Eos # (Auto) 0.2 (0.0-0.7) 01/23/18 07:00 Baso # (Auto) 0.02 K/mm3 (0.0-2.0) 01/23/18 07:00 PT 15.7 SECONDS (9.4-12.5) H 01/23/18 07:00 INR 1.36 01/23/18 07:00 APTT 31.8 Seconds (25.1-36.5) 01/20/18 11:00 pCO2 38 mm/Hg (35-45) 01/20/18 11:00 pO2 72 mm/Hg (30-55) H 01/20/18 11:00 HCO3 24.6 mmol/L (21-28) 01/20/18 11:00 ABG pH 7.42 (7.35-7.45) 01/20/18 11:00 ABG Total CO2 25.8 mmol.L (22-28) 01/20/18 11:00 ABG O2 Saturation 97.8 % (95-98) 01/20/18 11:00 ABG Base Excess 0.3 mmol/L (-2.0-3.0) 01/20/18 11:00 ABG Potassium 3.6 mmol/L (3.6-5.2) 01/20/18 11:00 VBG pH 7.38 (7.32-7.43) 01/20/18 11:00 VBG pCO2 49.0 (40-60) 01/20/18 11:00 VBG HCO3 29.0 mmol/l (21-28) H 01/20/18 11:00 VBG Total CO2 30.5 mmol.L (22-28) H 01/20/18 11:00 VBG O2 Sat (Calc) 95.8 % (40-65) H 01/20/18 11:00 VBG Base Excess 3.0 mmol/L (0.0-2.0) H 01/20/18 11:00 VBG Potassium 6.1 mmol/L (3.6-5.2) H 01/20/18 11:00 Sodium 142.0 mmol/L (132-148) 01/20/18 11:00 Chloride 116.0 mmol/L (98-107) H 01/20/18 11:00 Glucose 91 mg/dl (65-105) 01/20/18 11:00 Lactate 1.1 mmol/L (0.7-2.1) 01/20/18 11:00 FiO2 21.0 % 01/20/18 11:00 Sodium 139 mmol/L (132-148) 01/23/18 07:00 Potassium 4.4 mmol/L (3.6-5.0) 01/23/18 07:00 Chloride 108 mmol/L (98-107) H 01/23/18 07:00 Carbon Dioxide 24 mmol/L (21-33) 01/23/18 07:00 Anion Gap 11 (10-20) 01/23/18 07:00 BUN 18 mg/dL (7-21) 01/23/18 07:00 Creatinine 1.2 mg/dl (0.7-1.2) 01/23/18 07:00 Est GFR ( Amer) 55 01/23/18 07:00 Est GFR (Non-Af Amer) 46 01/23/18 07:00 Random Glucose 88 mg/dL (70-110) 01/23/18 07:00 Calcium 8.9 mg/dL (8.4-10.5) 01/23/18 07:00 Phosphorus 3.6 mg/dL (2.5-4.5) 01/22/18 06:30 Magnesium 2.0 mg/dL (1.7-2.2) 01/23/18 07:00 Total Bilirubin 0.3 mg/dL (0.2-1.3) 01/23/18 07:00 AST 20 U/L (14-36) 01/23/18 07:00 ALT 18 U/L (7-56) 01/23/18 07:00 Alkaline Phosphatase 78 U/L (38-126) 01/23/18 07:00 Lactate Dehydrogenase 451 U/L (333-699) 01/20/18 11:40 Total Creatine Kinase 148 U/L (35-230) 09/14/18 11:40 Troponin I < 0.01 ng/mL D 01/20/18 11:40 Total Protein 7.5 g/dL (5.8-8.3) 01/23/18 07:00 Albumin 3.6 g/dL (3.0-4.8) 01/23/18 07:00 Globulin 3.9 gm/dL 01/23/18 07:00 Albumin/Globulin Ratio 0.9 (1.1-1.8) L 01/23/18 07:00 Lipase 89 U/L (23-300) 01/20/18 11:40 Free T4 1.14 ng/dL (0.78-2.19) 01/20/18 11:15 TSH 3rd Generation 1.34 mIU/mL (0.46-4.68) 01/20/18 11:15 Arterial Blood Potassium 3.6 mmol/L (3.6-5.2) 01/20/18 11:00 Venous Blood Potassium 6.1 mmol/L (3.6-5.2) H 01/20/18 11:00 Urine Color Yellow (YELLOW) 01/20/18 11:00 Urine Appearance Clear (CLEAR) 01/20/18 11:00 Urine pH 6.5 (4.7-8.0) 01/20/18 11:00 Ur Specific [place] 1.020 (1.005-1.035) 01/20/18 11:00 Urine Protein Trace mg/dL (<30 mg/dL) H 01/20/18 11:00 Urine Glucose (UA) Negative mg/dL (NEGATIVE) 01/20/18 11:00 Urine Ketones Negative mg/dL (NEGATIVE) 01/20/18 11:00 Urine Blood Trace-intact (NEGATIVE) H 01/20/18 11:00 Urine Nitrate Negative (NEGATIVE) 01/20/18 11:00 Urine Bilirubin Negative (NEGATIVE) 01/20/18 11:00 Urine Urobilinogen 0.2 E.U./dL (<1 E.U./dL) 01/20/18 11:00 Ur Leukocyte Esterase Negative Gaurav/uL (NEGATIVE) 01/20/18 11:00 Urine RBC 1 - 3 /hpf (0-2) 01/20/18 11:00 Urine WBC 0 - 2 /hpf (0-6) 01/20/18 11:00 Ur Epithelial Cells 4 - 5 /hpf (0-5) 01/20/18 11:00 Urine Bacteria Many (NEG) 01/20/18 11:00 Salicylates < 1 mg/dL (2.0-20.0) L 01/20/18 11:00 Urine Opiates Screen Negative (NEGATIVE) 01/20/18 11:00 Urine Methadone Screen Negative (NEGATIVE) 01/20/18 11:00 Acetaminophen < 10.0 ug/ml (10.0-20.0) L 01/20/18 11:00 Ur Barbiturates Screen Negative (NEGATIVE) 01/20/18 11:00 Ur Phencyclidine Scrn Negative (NEGATIVE) 01/20/18 11:00 Ur Amphetamines Screen Negative (NEGATIVE) 01/20/18 11:00 U Benzodiazepines Scrn Negative (NEGATIVE) 01/20/18 11:00 U Oth Cocaine Metabols Negative (NEGATIVE) 01/20/18 11:00 U Cannabinoids Screen Negative (NEGATIVE) 01/20/18 11:00 Alcohol, Quantitative < 10 mg/dL (0-10) 01/20/18 11:00 - Hospital Course Hospital Course: Rodrigo Gamez, PGY1 Discharge Summary for Dr. Escobedo Hospital Admission: Patient is a 62 y/o F with PMHx of AMS, CHF, Dementia, TIA, HTN, Prior History of DVT who presented to the ED on 01/20 for confusion and altered mental status. In the ED, daughter was present at bedside. As per daughter, patient was found at 10am to be tired and confused with missing pills found from a bottle of Ambien. Patient was not witnessed to have overdosed and she does not have any suicidal ideations. In the ED, patient's vital signs were Temp 96.2, HR 80, BP 168/89, RR 26, SaO2 98% room air. Patient had CXR which indicated no active disease. Patient's Head CT did not indicate any acute changes but it showed extensive encephalomalacia at the R-hemisphere and portions of the left occipital lobe (similar to previous scans). Initial troponin negative, urine drug screen negative, urine analysis negative. EKG showed NSR at 92 bpm. ABG was normal. Medical team was consulted for evaluation and patient was admitted for encephalopathy 2/2 polypharmacy. Initially when examined by the medical team, patient was confused. She was AAOx1. Baseline mental status was unknown since patient's daughter or family member was not present at bedside. She did say that she took several pills earlier in the morning but did not know which ones. It was later confirmed that the patient took multiple pills of Ambien. No ICU admission was warranted. Patient also noted to be taking coumadin 5 mg for her history of DVT but has not been therapeutic during admission (INR 1.36). During her hospital course, patient improved neurologically and has been grossly negative for review of systems. She has returned to her baseline mental status, AAOx3. Her vitals are also stable. Patient does have some weakness and requires rehab via TCU, as per PT recommendations. Upon Discharge: Continue with medications. Start rehab at TCU. Case was discussed and reviewed with Attending Physician, Dr. Escobedo. Discharge Exam - Head Exam Head Exam: ATRAUMATIC, NORMOCEPHALIC - Eye Exam Eye Exam: EOMI, Normal appearance, PERRL Pupil Exam: NORMAL ACCOMODATION, PERRL - ENT Exam ENT Exam: Mucous Membranes Moist, Normal Exam - Respiratory Exam Respiratory Exam: Clear to PA & Lateral, NORMAL BREATHING PATTERN, UNREMARKABLE. absent: Rales, Rhonchi, Wheezes - Cardiovascular Exam Cardiovascular Exam: REGULAR RHYTHM, +S1, +S2 - GI/Abdominal Exam GI & Abdominal Exam: Normal Bowel Sounds, Unremarkable - Extremities Exam Additional comments: Left above the elbow amputation. - Neurological Exam Neurological exam: Alert, Oriented x3 - Psychiatric Exam Psychiatric exam: Normal Affect, Normal Mood - Skin Skin Exam: Dry, Intact, Normal Color, Warm Discharge Plan - Follow Up Plan Condition: SERIOUS Disposition: TRANSF TO SNF Instructions: Heart Healthy Diet, Sciatica (DC), Altered Mental Status (DC), Sepsis, Adult (DC), Knee Pain Additional Instructions: If symptoms of altered mental status worsen or return, please contact your primary care provider or go to the nearest ER. Referrals: Memo Cowan MD [Primary Care Provider] - <Susanna Escobedo - Last Filed: 01/24/18 17:18> Provider - Provider Date of Admission: 01/20/18 13:31 Attending physician: Alaina Alonzo MD Primary care physician: Memo Cowan MD Hospital Course - Lab Results Lab Results: Micro Results 01/22/18 13:15 Stool C. difficile Antigen & Toxin A,B (M - Final Most Recent Lab Values WBC 5.1 10^3/ul (4.5-11.0) 01/23/18 07:00 RBC 4.85 10^6/uL (3.5-6.1) 01/23/18 07:00 Hgb 11.8 g/dL (12.0-16.0) L 01/23/18 07:00 Hct 37.7 % (36.0-48.0) 01/23/18 07:00 MCV 77.7 fl (80.0-105.0) L 01/23/18 07:00 MCH 24.3 pg (25.0-35.0) L 01/23/18 07:00 MCHC 31.3 g/dl (31.0-37.0) 01/23/18 07:00 RDW 16.8 % (11.5-14.5) H 01/23/18 07:00 Plt Count 265 10^3/uL (120.0-450.0) 01/23/18 07:00 MPV 10.0 fl (7.0-11.0) 01/23/18 07:00 Gran % 44.5 % (50.0-68.0) L 01/23/18 07:00 Lymph % (Auto) 40.0 % (22.0-35.0) H 01/23/18 07:00 [place] % (Auto) 12.0 % (1.0-6.0) H 01/23/18 07:00 Eos % (Auto) 3.1 % (1.5-5.0) 01/23/18 07:00 Baso % (Auto) 0.4 % (0.0-3.0) 01/23/18 07:00 Gran # 2.27 (1.4-6.5) 01/23/18 07:00 Lymph # (Auto) 2.0 (1.2-3.4) 01/23/18 07:00 [place] # (Auto) 0.6 (0.1-0.6) 01/23/18 07:00 Eos # (Auto) 0.2 (0.0-0.7) 01/23/18 07:00 Baso # (Auto) 0.02 K/mm3 (0.0-2.0) 01/23/18 07:00 PT 15.7 SECONDS (9.4-12.5) H 01/23/18 07:00 INR 1.36 01/23/18 07:00 APTT 31.8 Seconds (25.1-36.5) 01/20/18 11:00 pCO2 38 mm/Hg (35-45) 01/20/18 11:00 pO2 72 mm/Hg (30-55) H 01/20/18 11:00 HCO3 24.6 mmol/L (21-28) 01/20/18 11:00 ABG pH 7.42 (7.35-7.45) 01/20/18 11:00 ABG Total CO2 25.8 mmol.L (22-28) 01/20/18 11:00 ABG O2 Saturation 97.8 % (95-98) 01/20/18 11:00 ABG Base Excess 0.3 mmol/L (-2.0-3.0) 01/20/18 11:00 ABG Potassium 3.6 mmol/L (3.6-5.2) 01/20/18 11:00 VBG pH 7.38 (7.32-7.43) 01/20/18 11:00 VBG pCO2 49.0 (40-60) 01/20/18 11:00 VBG HCO3 29.0 mmol/l (21-28) H 01/20/18 11:00 VBG Total CO2 30.5 mmol.L (22-28) H 01/20/18 11:00 VBG O2 Sat (Calc) 95.8 % (40-65) H 01/20/18 11:00 VBG Base Excess 3.0 mmol/L (0.0-2.0) H 01/20/18 11:00 VBG Potassium 6.1 mmol/L (3.6-5.2) H 01/20/18 11:00 Sodium 142.0 mmol/L (132-148) 01/20/18 11:00 Chloride 116.0 mmol/L (98-107) H 01/20/18 11:00 Glucose 91 mg/dl (65-105) 01/20/18 11:00 Lactate 1.1 mmol/L (0.7-2.1) 01/20/18 11:00 FiO2 21.0 % 01/20/18 11:00 Sodium 139 mmol/L (132-148) 01/23/18 07:00 Potassium 4.4 mmol/L (3.6-5.0) 01/23/18 07:00 Chloride 108 mmol/L (98-107) H 01/23/18 07:00 Carbon Dioxide 24 mmol/L (21-33) 01/23/18 07:00 Anion Gap 11 (10-20) 01/23/18 07:00 BUN 18 mg/dL (7-21) 01/23/18 07:00 Creatinine 1.2 mg/dl (0.7-1.2) 01/23/18 07:00 Est GFR ( Amer) 55 01/23/18 07:00 Est GFR (Non-Af Amer) 46 01/23/18 07:00 Random Glucose 88 mg/dL (70-110) 01/23/18 07:00 Calcium 8.9 mg/dL (8.4-10.5) 01/23/18 07:00 Phosphorus 3.6 mg/dL (2.5-4.5) 01/22/18 06:30 Magnesium 2.0 mg/dL (1.7-2.2) 01/23/18 07:00 Total Bilirubin 0.3 mg/dL (0.2-1.3) 01/23/18 07:00 AST 20 U/L (14-36) 01/23/18 07:00 ALT 18 U/L (7-56) 01/23/18 07:00 Alkaline Phosphatase 78 U/L (38-126) 01/23/18 07:00 Lactate Dehydrogenase 451 U/L (333-699) 01/20/18 11:40 Total Creatine Kinase 148 U/L (35-230) 01/20/18 11:40 Troponin I < 0.01 ng/mL D 01/20/18 11:40 Total Protein 7.5 g/dL (5.8-8.3) 01/23/18 07:00 Albumin 3.6 g/dL (3.0-4.8) 01/23/18 07:00 Globulin 3.9 gm/dL 01/23/18 07:00 Albumin/Globulin Ratio 0.9 (1.1-1.8) L 01/23/18 07:00 Lipase 89 U/L (23-300) 01/20/18 11:40 Free T4 1.14 ng/dL (0.78-2.19) 01/20/18 11:15 TSH 3rd Generation 1.34 mIU/mL (0.46-4.68) 01/20/18 11:15 Arterial Blood Potassium 3.6 mmol/L (3.6-5.2) 01/20/18 11:00 Venous Blood Potassium 6.1 mmol/L (3.6-5.2) H 01/20/18 11:00 Urine Color Yellow (YELLOW) 01/20/18 11:00 Urine Appearance Clear (CLEAR) 01/20/18 11:00 Urine pH 6.5 (4.7-8.0) 01/20/18 11:00 Ur Specific [place] 1.020 (1.005-1.035) 01/20/18 11:00 Urine Protein Trace mg/dL (<30 mg/dL) H 01/20/18 11:00 Urine Glucose (UA) Negative mg/dL (NEGATIVE) 01/20/18 11:00 Urine Ketones Negative mg/dL (NEGATIVE) 01/20/18 11:00 Urine Blood Trace-intact (NEGATIVE) H 01/20/18 11:00 Urine Nitrate Negative (NEGATIVE) 01/20/18 11:00 Urine Bilirubin Negative (NEGATIVE) 01/20/18 11:00 Urine Urobilinogen 0.2 E.U./dL (<1 E.U./dL) 01/20/18 11:00 Ur Leukocyte Esterase Negative Gaurav/uL (NEGATIVE) 01/20/18 11:00 Urine RBC 1 - 3 /hpf (0-2) 01/20/18 11:00 Urine WBC 0 - 2 /hpf (0-6) 01/20/18 11:00 Ur Epithelial Cells 4 - 5 /hpf (0-5) 01/20/18 11:00 Urine Bacteria Many (NEG) 01/20/18 11:00 Salicylates < 1 mg/dL (2.0-20.0) L 01/20/18 11:00 Urine Opiates Screen Negative (NEGATIVE) 01/20/18 11:00 Urine Methadone Screen Negative (NEGATIVE) 01/20/18 11:00 Acetaminophen < 10.0 ug/ml (10.0-20.0) L 01/20/18 11:00 Ur Barbiturates Screen Negative (NEGATIVE) 01/20/18 11:00 Ur Phencyclidine Scrn Negative (NEGATIVE) 01/20/18 11:00 Ur Amphetamines Screen Negative (NEGATIVE) 01/20/18 11:00 U Benzodiazepines Scrn Negative (NEGATIVE) 01/20/18 11:00 U Oth Cocaine Metabols Negative (NEGATIVE) 01/20/18 11:00 U Cannabinoids Screen Negative (NEGATIVE) 01/20/18 11:00 Alcohol, Quantitative < 10 mg/dL (0-10) 01/20/18 11:00 Attending/Attestation - Attestation I have personally seen and examined this patient.: Yes I have fully participated in the care of the patient.: Yes I have reviewed all pertinent clinical information, including history, physical exam and plan: Yes Notes (Text): 01/24/18 17:15 attending note; Patient seen and examined with resident. 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 1. Encephalopathy in a patient with history of dementia. Likely secondary to polypharmacy. currently Patient is alert and awake. Not in any acute distress. Neurology evaluation appreciated. Urine drug screen negative. Urine and blood cultures with no growth. TSH within normal limits. CT head shows study degraded by motion artifact, extensive encephalomalacia in the right hemisphere and portions of left occipital lobe, findings unchanged. 2. Hypertension. Continue lisinopril and metoprolol. 3. Bilateral lower extremity edema. Lower extremity venous Dopplers negative for DVT. 4. History of DVT. INR subtherapeutic. Continue therapeutic Lovenox. continue Coumadin 10 mg. Follow up repeat INR in the morning and adjust Coumadin dosing. 5. Arthritis and pain. Continue Tylenol as needed. Continue Flexeril as needed. physical therapy evaluation appreciated. Transfer the patient to TCU today. Upon discharge the patient will follow-up with PMD Dr. Cowan. Case was discussed in detail with the patient regarding current diagnosis and treatment plan. 01/24/18 17:18
--- NOTE | 2018-01-24 05:57 | CP.PCM.HP ---
History of Present Illness - History of Present Illness History of Present Illness: Rodrigo Gamez, PGY1 H&P for Dr. Escobedo cc: confusion and AMS Patient is a 62 y/o F with PMHx of AMS, CHF, Dementia, TIA, HTN, Prior History of DVT who presented to the ED on 01/20 for confusion and altered mental status. In the ED, daughter was present at bedside. As per daughter, patient was found at 10am to be tired and confused with missing pills found from a bottle of Ambien. Patient was not witnessed to have overdosed and she does not have any suicidal ideations. In the ED, patient's vital signs were Temp 96.2, HR 80, BP 168/89, RR 26, SaO2 98% room air. Patient had CXR which indicated no active disease. Patient's Head CT did not indicate any acute changes but it showed extensive encephalomalacia at the R-hemisphere and portions of the left occipital lobe (similar to previous scans). Initial troponin negative, urine drug screen negative, urine analysis negative. EKG showed NSR at 92 bpm. ABG was normal. Medical team was consulted for evaluation and patient was admitted for encephalopathy 2/2 polypharmacy. Initially when examined by the medical team, patient was confused. She was AAOx1. Baseline mental status was unknown since patient's daughter or family member was not present at bedside. She did say that she took several pills earlier in the morning but did not know which ones. It was later confirmed that the patient took multiple pills of Ambien. No ICU admission was warranted. Patient also noted to be taking coumadin 5 mg for her history of DVT but has not been therapeutic during admission (INR 1.36). During her hospital course, patient improved neurologically and has been grossly negative for review of systems. She has returned to her baseline mental status, AAOx3. Her vitals are also stable. Patient does have some weakness and requires rehab via TCU, as per PT recommendations. A full 12 point ROS was conducted and unremarkable except as stated above. PMD: Dr. Cowan PMHx: AMS, CHF, Dementia, TIA, HTN, Prior History of DVT PSHx: cholecystectomy, left arm above the elbow amputation Meds: zolpidem 10 mg HS, warfarin 5 mg 1 daily, ASA 81 mg daily, Alprazolam .5 mg daily, Lyrica 75 mg TID, Metoprolol 25 mg BID, Lisinopril 10 mg daily. Allergies: NKDA FamHx: not obtained since patient is confused. SocialHx: not obtained since patient is confused. 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, deaf in right ear - RENAL Hx Chronic Kidney Disease: No - ENDOCRINE/METABOLIC Hx Endocrine Disorders: No - HEMATOLOGICAL/ONCOLOGICAL Hx Blood Disorders: No - INTEGUMENTARY Hx Dermatological Problems: Yes Other/Comment: LEFT ABOVE ELBOW AMPUTION - MUSCULOSKELETAL/RHEUMATOLOGICAL Hx Musculoskeletal Disorders: Yes (ABOVE LEFT ELBOW AMPUTATION) Hx Falls: Yes Hx Unsteady Gait: Yes - GASTROINTESTINAL Hx Gastrointestinal Disorders: Yes Hx Gall Bladder Disease: Yes (CHOLEYCTECTOMY) - GENITOURINARY/GYNECOLOGICAL Hx Genitourinary Disorders: No - PSYCHIATRIC Hx Psychophysiologic Disorder: No Hx Depression: No Hx Emotional Abuse: No Hx Physical Abuse: No Hx Substance Use: No - SURGICAL HISTORY Hx Surgeries: Yes Hx Cholecystectomy: Yes Other/Comment: Left arm above elbow ampute. - ANESTHESIA Hx Anesthesia: Yes Hx Anesthesia Reactions: No Hx Malignant Hyperthermia: No Meds Home Medications: Home Medication List Medication Instructions Recorded Confirmed Type Acetaminophen [Tylenol 325mg tab] 650 mg PO Q6H PRN tab 01/23/18 Rx Cyclobenzaprine [Flexeril] 5 mg PO TID PRN tab 01/23/18 Rx Enoxaparin Sodium [Lovenox] 150 mg SC Q12H ml 01/23/18 Rx Metoprolol Tartrate [Lopressor] 25 mg PO BID tab 01/23/18 Rx Warfarin [Coumadin] 10 mg PO 1800 tab 01/23/18 Rx Allergies/Adverse Reactions: Allergies Allergy/AdvReac Type Severity Reaction Status Date / Time No Known Allergies Allergy Verified 01/23/18 20:04 Physical Exam - Constitutional Appears: Well, No Acute Distress - Head Exam Head Exam: ATRAUMATIC, NORMAL INSPECTION, NORMOCEPHALIC - Eye Exam Eye Exam: EOMI, Normal appearance, PERRL - ENT Exam ENT Exam: Mucous Membranes Moist, Normal Exam - Neck Exam Neck exam: Positive for: Normal Inspection - Respiratory Exam Respiratory Exam: Clear to Auscultation Bilateral, NORMAL BREATHING PATTERN Results - Vital Signs Recent Vital Signs: Last Vital Signs Temp 100.1 F H 01/23/18 14:00 Pulse 109 H 01/23/18 18:18 Resp 20 01/23/18 14:00 BP 138/82 01/23/18 18:18 Pulse Ox 97 01/23/18 14:00 - Labs Result Diagrams: 01/23/18 07:00 01/23/18 07:00 Labs: Laboratory Results - last 24 hr 01/23/18 01/23/18 01/23/18 07:00 07:00 07:00 WBC 5.1 RBC 4.85 Hgb 11.8 L Hct 37.7 MCV 77.7 L MCH 24.3 L MCHC 31.3 RDW 16.8 H Plt Count 265 MPV 10.0 Gran % 44.5 L Lymph % (Auto) 40.0 H Williams % (Auto) 12.0 H Eos % (Auto) 3.1 Baso % (Auto) 0.4 Gran # 2.27 Lymph # (Auto) 2.0 Williams # (Auto) 0.6 Eos # (Auto) 0.2 Baso # (Auto) 0.02 PT 15.7 H INR 1.36 Sodium 139 Potassium 4.4 Chloride 108 H Carbon Dioxide 24 Anion Gap 11 BUN 18 Creatinine 1.2 Est GFR ( Amer) 55 Est GFR (Non-Af Amer) 46 Random Glucose 88 Calcium 8.9 Magnesium 2.0 Total Bilirubin 0.3 AST 20 ALT 18 Alkaline Phosphatase 78 Total Protein 7.5 Albumin 3.6 Globulin 3.9 Albumin/Globulin Ratio 0.9 L Assessment & Plan (1) Altered mental status Status: Resolved
== END 2018-01-23 18:57 | DRG 917 ==
LOC: ED 10:23 → ERH 13:31 → 2RNO 14:51 → 5RSO 01-22 15:05
PROVIDERS: ADMIT Internal Medicine; ATTEND Internal Medicine
DX: T42.6X1A Poisoning by other antiepileptic and sedative-hypnotic drugs, accidental (unintentional), initial encounter (principal); G92 Toxic encephalopathy; T50.905A Adverse effect of unspecified drugs, medicaments and biological substances, initial encounter; G93.89 Other specified disorders of brain; F03.90 Unspecified dementia, unspecified severity, without behavioral disturbance, psychotic disturbance, mood disturbance, and anxiety; I11.0 Hypertensive heart disease with heart failure; I50.9 Heart failure, unspecified; M17.10 Unilateral primary osteoarthritis, unspecified knee; R79.1 Abnormal coagulation profile; Z86.718 Personal history of other venous thrombosis and embolism; Z89.222 Acquired absence of left upper limb above elbow; Z86.73 Personal history of transient ischemic attack (TIA), and cerebral infarction without residual deficits; Z79.01 Long term (current) use of anticoagulants; Z87.891 Personal history of nicotine dependence